=== PATIENT | male | born 1950 ===

== ENCOUNTER 2021-05-28 19:02 | Inpatient (IN) | payer OTHER ==
[~2021-05-28] VITALS: Ht 182.9 cm; Wt 152.6 kg
[2021-05-28 19:29] LABS: BASO % 0.2 % (0.0-2.0); EOS # 0.1 (0.0-0.7); EOS % 0.6 % (0-4.0); GRAN # 9.8 (1.4-6.5); GRAN % 69.7 % (42.2-75.2); HEMATOCRIT 40.5 % (42.0-52.0); HEMOGLOBIN 13.5 g/dl (13.5-18.0); LYMPH # 2.8 (1.2-3.4); LYMPH % 19.7 % (20.0-51.0); MEAN CELL VOLUME 94 fl (80.0-100.0); MEAN CORPUSCULAR HEMOGLOBIN 31 pg (27.0-31.0); MEAN CORPUSCULAR HGB CONC 33 g/dl (33.0-37.0); MEAN PLATELET VOLUME 10.1 fl (7.4-10.4); MONO # 1.3 (0.1-0.6); MONO % 9.4 % (1.7-9.3); PLATELET COUNT 211 K/mm3 (130-400); RED BLOOD COUNT 4.33 M/mm3 (4.20-5.60)
[2021-05-28 19:37] LABS: ALBUMIN 3.8 gm/dL (3.5-5.0); BILIRUBIN,TOTAL 0.6 mg/dL (0.0-1.0); CREATININE, serum 2.1 (0.66-1.25); POTASSIUM 4.3 mmol/L (3.4-5.0); TOTAL PROTEIN 9.1 gm/dL (6.4-8.2)
[2021-05-28 19:47] LABS: INR 1.3 (0.8-3.0); PROTHROMBIN TIME 14.5 SECONDS (9.7-12.8)
[2021-05-28 20:13] LABS: COLLECTION METHOD CLEAN CATCH
[2021-05-28 20:39] LABS: PH 6 (5-8); SQUAMOUS EPITHELIAL 0-2 /hpf; URINE APPEARANCE Cloudy; URINE BACTERIA None Seen /hpf; URINE BILIRUBIN Negative (NEGATIVE); URINE BLOOD 2+ (NEGATIVE); URINE COLOR Red; URINE GLUCOSE Negative (NEGATIVE); URINE KETONE Negative (NEGATIVE); URINE LEUKOCYTE ESTERASE Negative (NEGATIVE); URINE NITRATE Negative (NEGATIVE); URINE PROTEIN(semi-quant) 2+ (NEGATIVE); URINE RBC >50 /hpf; URINE UROBILINOGEN Negative (NEGATIVE)
[2021-05-28] MEDS ORDERED: LOTENSIN HCT 201 TA1 PO (21:21)
[2021-05-28] MEDS ORDERED: MASON NATURAL S1 CAP PO (21:22)
[2021-05-28] MEDS ORDERED: BACTRIM DS 8001 TAB PO (21:22)
--- NOTE | 2021-05-28 22:10 | NUR ---
Admitted to room 317 via stretcher. Transferred to be with 4 assist. Admission assessment complete. VS stable. Daughter at bedside. CBI currently running at a moderate rate with clear yellow urine return with occasional pea size blood clots. Denies pain/nausea/shortness of breath. Plan of care discussed for this shift to include CBI/NPO status/calling for questions/concerns. Verbalizes understanding/denies needs. Call light in reach. Will monitor.
[2021-05-28 22:21] VITALS: BP 111/50; PULSE 96; TEMP 97.6
[2021-05-28] MEDS ORDERED: FLOMAX 0.40.4 MG/CAP PO (22:28)
[2021-05-28 23:54] VITALS: BP 124/66; PULSE 90; TEMP 97.6
[2021-05-29] VITALS (11 sets, daily range): BP systolic 103–140; BP diastolic 53–74; PULSE 76–93; TEMP 97.5–98.6
--- NOTE | 2021-05-29 01:42 | NUR ---
Assisted up to bathroom at this time with two assist. Tolerated well.
--- NOTE | 2021-05-29 03:01 | NUR ---
CBI continues to infuse at a moderate rate. Output mostly light pink with occasional pea size clot. Denies pain/nausea. Remains on O2@3L/NC with O2 sats 92-94%. Call light in reach. Will monitor.
--- NOTE | 2021-05-29 05:55 | NUR ---
CBI continued to flow at a moderate rate-urine clear yellow with occasional small clots noted. Multiple skin issues noted-morbidly obese-skin appears thick/discolored with multiple areas of irritation/old scabbing. Rested off and on this shift. Is very nervous about being in the hospital and having a procedure done. VS remained stable. Denies pain/nausea. O2 remains @3L/NC. Dyspnea with activity. Remained NPO since midnight. Denies current needs. Call light in reach. Will monitor.
[2021-05-29 06:46] LABS: BASO % 0.3 % (0.0-2.0); EOS # 0.2 (0.0-0.7); GRAN # 7.6 (1.4-6.5); GRAN % 63.5 % (42.2-75.2); HEMATOCRIT 40.3 % (42.0-52.0); HEMOGLOBIN 13.3 g/dl (13.5-18.0); LYMPH # 2.8 (1.2-3.4); LYMPH % 23.1 % (20.0-51.0); MEAN CELL VOLUME 96 fl (80.0-100.0); MEAN CORPUSCULAR HEMOGLOBIN 32 pg (27.0-31.0); MEAN CORPUSCULAR HGB CONC 33 g/dl (33.0-37.0); MEAN PLATELET VOLUME 10.3 fl (7.4-10.4); MONO # 1.3 (0.1-0.6); MONO % 10.7 % (1.7-9.3); PLATELET COUNT 210 K/mm3 (130-400); REDCELL DISTRIBUTION WIDTH-CV 14.2 % (11.5-14.5)
[2021-05-29 06:49] LABS: CREATININE, serum 1.97 (0.66-1.25); POTASSIUM 4.2 mmol/L (3.4-5.0)
--- NOTE | 2021-05-29 10:52 | NUR ---
Social Media Director attended clinical rounds with the team. PT/OT ordered. Following rounds, SW met with the patient to complete intake. The patient lives alone in [place]. The patient has a cane and is independent with ADLs. The patient's PCP is Dr. Gutiérrez and patient receives medications from [facility] in . The patient does not have advanced directives and was not interested in DPOA-HC form at this time. The patient is not . He has one daughter, Jelly who lives locally. The patient plans to return home at discharge with no concerns about doing so. *Discharge disposition: Home
--- NOTE | 2021-05-29 10:59 | NUR ---
Salas catheter irrigated with sterile NS. Moderate amount of clots returned. CBI opened to infuse at fast rate, urine clear at this time.
--- NOTE | 2021-05-29 11:00 | NUR ---
Entered pt's room to see Salas bag full of dark red urine and golf ball sized clots. CBI rate increased and notified. Verbal orders to irrigate bladder w/NS. unitizer Gifty assisted in this and was able to remove a large clot. CBI restarted at max rate and updated.
--- NOTE | 2021-05-29 16:49 | NUR ---
Pt off unit for cystoscopy at this time.
--- NOTE | 2021-05-29 22:26 | NUR ---
Pt here from cystoscopy with CBI running moderate rate. No clots noted in line. Iv fluids running. Denies pain or soa. States feels great. Plan of care discussed w pt and daughters. Diet ordered, pm meds given. Needs met .
[2021-05-30 04:37] VITALS: BP 111/54; PULSE 56; TEMP 97.7
--- NOTE | 2021-05-30 05:02 | NUR ---
RESTED THROUGH THE NIGHT WITHOUT INCIDENT. CBI RUNNING MODERATE. URINE CLEAR YELLOW. NO CLOTS . NEEDS MET.
[2021-05-30 07:14] LABS: GRAN # 6.8 (1.4-6.5); GRAN % 87.6 % (42.2-75.2); HEMATOCRIT 38.8 % (42.0-52.0); HEMOGLOBIN 12.6 g/dl (13.5-18.0); LYMPH # 0.7 (1.2-3.4); LYMPH % 9.5 % (20.0-51.0); MEAN CELL VOLUME 98 fl (80.0-100.0); MEAN CORPUSCULAR HEMOGLOBIN 32 pg (27.0-31.0); MEAN CORPUSCULAR HGB CONC 33 g/dl (33.0-37.0); MEAN PLATELET VOLUME 11.6 fl (7.4-10.4); MONO # 0.2 (0.1-0.6); MONO % 2.6 % (1.7-9.3); PLATELET COUNT 197 K/mm3 (130-400); RED BLOOD COUNT 3.96 M/mm3 (4.20-5.60); REDCELL DISTRIBUTION WIDTH-CV 14.6 % (11.5-14.5)
--- NOTE | 2021-05-30 07:40 | NUR ---
ASSESSMENT COMPLETED. PT RESTING IN BED. DENIES ANY PAIN, SOB, OR DIZINESS. URINE APPEARS PEACH/YELLOW IN COLOR. NS RUNNING AT 200 AND CBI RUNNING PER GRAVITY. SKIN ON LEGS APPEARS SCALY AND FLAKY. SKIN ON LOWER ABDOMEN APPEARS SCALY AND LUMPY. CALL LIGHT WITHIN REACH. WILL CONTINUE TO MONITOR.
[2021-05-30 08:13] LABS: CALCIUM 9.2 mg/dL (8.4-10.2); CREATININE, serum 1.46 (0.66-1.25); MAGNESIUM 1.9 mg/dL (1.6-2.3); POTASSIUM 4.6 mmol/L (3.4-5.0)
[2021-05-30 08:20] VITALS: BP 113/62; PULSE 79; TEMP 98.4
--- NOTE | 2021-05-30 12:04 | NUR ---
First visit from the septic technician. No needs right now.
[2021-05-30 12:15] VITALS: BP 115/59; PULSE 77; TEMP 98.6
--- NOTE | 2021-05-30 16:11 | NUR ---
PT/OT recommending home health. [employer] provided Medicare.gov's list of home health agencies that serve the [facility]. The patient is undecided if he would like home health but will review the list then inform this SW.
[2021-05-30 16:14] VITALS: BP 112/43; PULSE 84; TEMP 98.4
[2021-05-30 21:57] VITALS: BP 126/52; PULSE 101; TEMP 97.6
[2021-05-30 22:57] LABS: BASO % 0.2 % (0.0-2.0); GRAN # 10.5 (1.4-6.5); GRAN % 79.5 % (42.2-75.2); HEMATOCRIT 37.9 % (42.0-52.0); HEMOGLOBIN 12.2 g/dl (13.5-18.0); LYMPH # 1.2 (1.2-3.4); LYMPH % 8.7 % (20.0-51.0); MEAN CELL VOLUME 97 fl (80.0-100.0); MEAN CORPUSCULAR HEMOGLOBIN 31 pg (27.0-31.0); MEAN CORPUSCULAR HGB CONC 32 g/dl (33.0-37.0); MEAN PLATELET VOLUME 10.2 fl (7.4-10.4); MONO # 1.5 (0.1-0.6); MONO % 11.1 % (1.7-9.3); PLATELET COUNT 198 K/mm3 (130-400); RED BLOOD COUNT 3.91 M/mm3 (4.20-5.60); REDCELL DISTRIBUTION WIDTH-CV 14.3 % (11.5-14.5)
[2021-05-30 23:19] LABS: ARTERIAL BLD GAS O2 SATURATION 93.3 % (92-100); ARTERIAL BLD GAS TCO2 CT 22.3; ARTERIAL BLOOD GAS BASE EXCESS -2.7 (-2-2); ARTERIAL BLOOD GAS HCO3 21.3 meq/L (22-26); ARTERIAL BLOOD GAS PCO2 34.2 mmHg (35-45); ARTERIAL BLOOD GAS PO2 65.4 mmHg (80-100); ARTERIAL BLOOD GAS pH 7.41 (7.35-7.45)
--- NOTE | 2021-05-31 00:26 | NUR ---
Patient assessed around 2019. Alert and oriented, and able to make needs known. Denies having pain and discomfort. Peripheral IV to right wrist. Denies having SOB and dyspnea. Patient had been on oxygen at 2 L/min via NC when assessed. Patient has since been increased to 4 L/min via NC at this time. LS CTA in upper lobes, diminished in lower. Respirations even and unlabored. HRR. Capillary refill less than 3 seconds. Non-tenting skin turgor. BSAx4. Abdomen soft and non-tender. INdwelling lozada cathether with CBI. Had been running moderate at beginning of shift, now running slow. Output clear and yellow, no clots. Patient's skin to abdomen and BLE scaling/flaking. Dr. Andrade in to see patient around 2039. New orders received for CT. See results. TREY Dacosta in to talk to patient and called daughter and updated on results and plan to transfer to around 2299. Troponin called to [facility] around 2330. Accepted to at this time. [facility] spoke to patient and called daughter and updated. rate supervisor working on transportation at this time.
[2021-05-31 03:00] VITALS: BP 129/54; PULSE 94; TEMP 97.7
--- NOTE | 2021-05-31 03:23 | NUR ---
Called Adan at and given report on patient. EMS here to picking crew supervisor patient and leaving facility at this time. Patient given belongings. NS continues to run at 200 mls/hr to IV site to right wrist. Site without redness, warmth, swelling, and pain. CBI running at a moderate rate at this time with peach, clear urine. On oxygen at 4 L/min via NC. Patient has been NPO since midnight.
== END 2021-05-31 03:25 | disposition short-term general hospital (02) | DRG 695 ==
LOC: COL.ER 19:02 → MEDICAL 20:45 → COL.ER 20:45 → MEDICAL 20:45
PROVIDERS: Internal Medicine; Nurse Practitioner Family; Personal Emergency Response Attendant; Student in an Organized Health Care Education/Training Program; Urology; ADMIT Family Medicine
PROC: 0TCD8ZZ Extirpation of Matter from Urethra, Via Natural or Artificial Opening Endoscopic (ICD-10-PCS; principal; 2021-05-29 13:00)
DX: R31.0 Gross hematuria (principal); J96.01 Acute respiratory failure with hypoxia; I26.99 Other pulmonary embolism without acute cor pulmonale; Z68.42 Body mass index [BMI] 45.0-49.9, adult; I50.30 Unspecified diastolic (congestive) heart failure; E66.01 Morbid (severe) obesity due to excess calories; E11.9 Type 2 diabetes mellitus without complications; N32.89 Other specified disorders of bladder; N17.9 Acute kidney failure, unspecified; N39.0 Urinary tract infection, site not specified; Z90.81 Acquired absence of spleen; Z90.49 Acquired absence of other specified parts of digestive tract; R33.9 Retention of urine, unspecified; I11.0 Hypertensive heart disease with heart failure; R53.81 Other malaise; N28.89 Other specified disorders of kidney and ureter
CPT/HCPCS: OP; 99223-AI; 99232-AI; 99233-AI; 99239; A9284; J0690; J0696; J1100; J2270; J2405; J2704; J3010; J7030; Q9967

== ENCOUNTER 2021-07-06 19:34 | Inpatient (IN) | payer MEDICARE ==
[~2021-07-06] VITALS: Ht 182.9 cm; Wt 176.6 kg
[~2021-07-06 19:34] MED LIST: BACTRIM DS 8001 TAB PO; FLOMAX 0.40.4 MG/CAP PO; LOTENSIN HCT 201 TA1 PO; MASON NATURAL S1 CAP PO
[2021-07-06 20:54] LABS: HEMATOCRIT 37.7 % (42.0-52.0); HEMOGLOBIN 12.1 g/dl (13.5-18.0); MEAN CELL VOLUME 97 fl (80.0-100.0); MEAN CORPUSCULAR HEMOGLOBIN 31 pg (27.0-31.0); MEAN CORPUSCULAR HGB CONC 32 g/dl (33.0-37.0); MEAN PLATELET VOLUME 10.1 fl (7.4-10.4); PLATELET COUNT 356 K/mm3 (130-400); RED BLOOD COUNT 3.89 M/mm3 (4.20-5.60)
[2021-07-06 20:58] LABS: ALBUMIN 3.3 gm/dL (3.5-5.0); BILIRUBIN,TOTAL 0.5 mg/dL (0.0-1.0); CALCIUM 9.4 mg/dL (8.4-10.2); CREATININE, serum 1.05 (0.66-1.25); POTASSIUM 4.2 mmol/L (3.4-5.0); TOTAL PROTEIN 8.3 gm/dL (6.4-8.2)
[2021-07-06 21:09] LABS: INR 1.7 (0.8-3.0); PROTHROMBIN TIME 18.9 SECONDS (9.7-12.8); TROPONIN-I 0.022 ng/mL (0.000-0.035)
[2021-07-06 21:12] LABS: PARTIAL THROMBOPLASTIN TIME 34.4 SECONDS (26.0-37.0)
[2021-07-06 21:13] LABS: COLLECTION METHOD CATHETER
[2021-07-06 21:14] LABS: ARTERIAL BLD GAS O2 SATURATION 95.7 % (92-100); ARTERIAL BLD GAS TCO2 CT 26.6; ARTERIAL BLOOD GAS BASE EXCESS 1.6 (-2-2); ARTERIAL BLOOD GAS HCO3 25.4 meq/L (22-26); ARTERIAL BLOOD GAS PCO2 37.1 mmHg (35-45); ARTERIAL BLOOD GAS pH 7.45 (7.35-7.45)
[2021-07-06] MEDS ORDERED: ELIQUIS 5MG PO (21:26)
[2021-07-06 21:29] LABS: C-REACTIVE PROTEIN 19.9 mg/dL (0.0-0.9)
[2021-07-06 21:34] LABS: MUCOUS Present /lpf; PH 7 (5-8); SQUAMOUS EPITHELIAL None Seen /hpf; URINE APPEARANCE Clear; URINE BACTERIA None Seen /hpf; URINE BILIRUBIN Negative (NEGATIVE); URINE BLOOD Negative (NEGATIVE); URINE COLOR Yellow; URINE GLUCOSE Negative (NEGATIVE); URINE KETONE Negative (NEGATIVE); URINE LEUKOCYTE ESTERASE Negative (NEGATIVE); URINE NITRATE Negative (NEGATIVE); URINE PROTEIN(semi-quant) 1+ (NEGATIVE); URINE WBC 0-2 /hpf
[2021-07-06 21:41] LABS: LYMPHOCYTE 20 % (20.0-51.0); NEUTROPHILS 73 % (42.0-75.2); NUCLEATED RED BLOOD CELL 1 (0-6)
[2021-07-06 21:43] LABS: ANISOCYTOSIS 1+; HYPOCHROMIA 1+; PLATELET ESTIMATE NORMAL (NORMAL)
[2021-07-06 22:31] LABS: ERYTHROCYTE SEDIMENTATION RATE 95 mm/hr (0-30)
[2021-07-06] MEDS ORDERED: FLOMAX 0.40.4 MG/CAP PO (23:33)
[2021-07-07] VITALS (9 sets, daily range): BP systolic 97–141; BP diastolic 40–75; PULSE 59–84; TEMP 97.4–98.6
[2021-07-07 02:46] LABS: IRON,SERUM < 10 ug/dL (35-150)
[2021-07-07 02:56] LABS: TOTAL IRON BINDING CAPACITY 196 ug/dL (261-462)
--- NOTE | 2021-07-07 03:11 | NUR ---
Vancomycin Initial Dosing Pharmacy Note Ordering provider: Maggie Mon MD Indication/duration: Extensive cellulitis x 10 days. Relevant comorbidities: DM, HTN, renal mass concerning for maligancy LABS: WBC = 31.9, SCr = 1.05 Recommendation: Will draw troughs and follow levels. Loading dose: 2 grams Maintenance dose: 1.25 grams every 12 hours Trough goal: 10-15 ug/mL
--- NOTE | 2021-07-07 05:01 | NUR ---
Pt came for cellulitis of the legs bilaterally. Pt has a open ulcer in the lower ABD which i placed a mepelex on.Pt is currently afibrile. Pain rated 0/10. IV antibiotics started. Will continue to monitor.
[2021-07-07 09:12] LABS: MEAN CELL VOLUME 99 fl (80.0-100.0); MEAN CORPUSCULAR HEMOGLOBIN 31 pg (27.0-31.0); MEAN CORPUSCULAR HGB CONC 31 g/dl (33.0-37.0); MEAN PLATELET VOLUME 9.4 fl (7.4-10.4); PLATELET COUNT 339 K/mm3 (130-400); RED BLOOD COUNT 3.57 M/mm3 (4.20-5.60); REDCELL DISTRIBUTION WIDTH-CV 15.4 % (11.5-14.5)
[2021-07-07 09:19] LABS: HEMATOCRIT 35.2 % (42.0-52.0)
[2021-07-07 09:24] LABS: ALBUMIN 2.8 gm/dL (3.5-5.0); BILIRUBIN,TOTAL 0.3 mg/dL (0.0-1.0); CALCIUM 8.7 mg/dL (8.4-10.2); CREATININE, serum 0.96 (0.66-1.25); POTASSIUM 4.2 mmol/L (3.4-5.0); TOTAL PROTEIN 7.2 gm/dL (6.4-8.2)
--- NOTE | 2021-07-07 13:11 | NUR ---
Plan is to return home in . Patient reports living independently. Patient reports that he has a DTR Jelly and a Adl-GrandDtr . Patient reports that she is in pain in his legs 07/09. Patient reports that he uses Cane for mobility and no other DME suppors. Patient report that his PCP is Dr. Andrade. RX obtained at [facility]. Patient reports that he is open to Home health services. LYNDA printed packet on Home health for references. Nothing Follows.
--- NOTE | 2021-07-07 19:52 | NUR ---
Patient resting in bed. Critical high WBC was called to this am. & were called consults. Patient was provided total hygiene this am. BLE elevated on pillows per Dr. Judd. Chux changed as needed when soiled from leg drainage. Salas care provided. Adequate urine output. benji output. Iv x2 with antibioitcs per orders and fluids. Patient has tolerated meals, denies nausea. Daughter at bedside. [facility]
--- NOTE | 2021-07-07 20:00 | NUR ---
PATIENT IS CALM IN THE ROOM.REPORTED OF A CHEST CONGESTION.RT GAVE HIM HIS BREATHING TREATMENT.PATIENT DENIES PAIN.PATIENT HAD HEMATURIA NIGHT PROVIDER NOTIFIED PLAN HOLD ELIQUIS.NO OTHER NEEDS AT THIS TIME.
[2021-07-08 03:21] VITALS: BP 112/44; PULSE 68; TEMP 97.7
--- NOTE | 2021-07-08 05:47 | NUR ---
PATIENT HAD A CALM NIGHT.DENIES PAIN.IVFS ON GOOD PROGRESS.ON O2 VIA NC.SAFETY MEASURES IN PLACE.NO OTHER NEEDS AT THIS TIME.
[2021-07-08 07:03] LABS: HEMOGLOBIN 10.6 g/dl (13.5-18.0); MEAN CELL VOLUME 98 fl (80.0-100.0); MEAN CORPUSCULAR HEMOGLOBIN 32 pg (27.0-31.0); MEAN CORPUSCULAR HGB CONC 32 g/dl (33.0-37.0); MEAN PLATELET VOLUME 9.9 fl (7.4-10.4); PLATELET COUNT 355 K/mm3 (130-400); RED BLOOD COUNT 3.37 M/mm3 (4.20-5.60); REDCELL DISTRIBUTION WIDTH-CV 15.7 % (11.5-14.5)
[2021-07-08 07:23] LABS: CALCIUM 8.6 mg/dL (8.4-10.2); CREATININE, serum 1.04 (0.66-1.25); POTASSIUM 4.3 mmol/L (3.4-5.0)
--- NOTE | 2021-07-08 07:31 | NUR ---
Critical wbc reported to lisa flood
[2021-07-08 07:32] VITALS: BP 111/46; PULSE 60; TEMP 99
[2021-07-08 08:03] LABS: BAND 21 % (0-10); LYMPHOCYTE 7 % (20.0-51.0); METAMYELOCYTE 2 % (0-0); NEUTROPHILS 68 % (42.0-75.2); PLATELET ESTIMATE NORMAL (NORMAL)
--- NOTE | 2021-07-08 10:45 | NUR ---
Patient resting in bed. Hospitalist team rounded. Plan of care reviewed. Eliquis given per orders, no signs of hematuria this am. Tylenol for leg pain. Legs elevated with pillows. Patient was up the am, used the restroom & stood at sink and brushed his teeth. New linens provided. Tolerated breakfast. Iv to RFA DC leaking. Antibiotcs to Lac per orders
[2021-07-08 11:34] VITALS: BP 111/45; PULSE 77; TEMP 97.4
--- NOTE | 2021-07-08 13:34 | NUR ---
Met with patient to follow up on discharge plan. SW attended multidiciplinary rounds and met with patient after to discuss. Educated the patient about the difference between home health and a SNF. Worker collaborated with provider and I.v. antibiotics post hospitalization not anticipated. Continue plan home with HH. *Discharge plan: home with HH*
--- NOTE | 2021-07-08 13:37 | NUR ---
Initial visit; Patient thanked [employer] for looking in on him and offering God's blessings and to keep him in her prayers.
--- NOTE | 2021-07-08 14:45 | NUR ---
Patient complains of cough, hospitalist team made aware orders obtained. Patient having lozada discomfort, UA ordered. no hematuria noted. Patient legs cleansed thoroughly, multiple washcloths used. drainage present. new chux beneath legs. pannus cleansed thoroughly, powder and inderdry cloth used. lozada cares given. Patient refused therapy this afternoon. His daughter at bedside. Will report off to nightnurse
--- NOTE | 2021-07-08 15:14 | NUR ---
dry yard worker met with patient and daughter (Jelly). Spoke with patient about therapy's recommendation is to go home with PT. Provided patient and patient's daugher the Medicare.Gov list of local home health agencies in their area. Patient and patient's daughter listed out their prefered agencies. dry yard worker called agencies and faxed referrals. Patient and patients daughter expressed interest in establishing a DPOA-HC. dry yard worker provided form and educated patient on what it means. Patient filled form out and this high school social studies tutor, and high school social studies tutor Dulce witnessed patient sign it. Waiting response from agencies. *Discharge plan: Home with home health*
[2021-07-08 16:14] VITALS: BP 108/46; PULSE 62; TEMP 97.6
[2021-07-08 16:20] LABS: COLLECTION METHOD CATHETER
[2021-07-08 16:32] LABS: PH 5 (5-8); SQUAMOUS EPITHELIAL 0-2 /hpf; URINE APPEARANCE Cloudy; URINE BACTERIA None Seen /hpf; URINE BILIRUBIN Negative (NEGATIVE); URINE BLOOD 3+ (NEGATIVE); URINE COLOR Yellow; URINE GLUCOSE Negative (NEGATIVE); URINE KETONE Negative (NEGATIVE); URINE LEUKOCYTE ESTERASE 1+ (NEGATIVE); URINE NITRATE Negative (NEGATIVE); URINE PROTEIN(semi-quant) 2+ (NEGATIVE); URINE RBC >50 /hpf; URINE UROBILINOGEN Negative (NEGATIVE)
--- NOTE | 2021-07-08 19:25 | NUR ---
Patient sat up at edge of bed for dinner. Assisted back into bed. Daughter at bedside. REport to [place]
--- NOTE | 2021-07-08 19:36 | NUR ---
PATIENT SITTING IN BED AT TIME OF ASSESSMENT. ALERT AND ORIENTED X4. ON RA NO RESPIRATORY DISTRESS NOTED. LUNG SOUNDS DIMINISHED. ABD LARGE WITN DRY OOZING AREA. MILLS CATHER TO GRAVITY WITH DARK YELLOW URINE. LACI LE WITH CELLULITIS, DRY AND SCALLY. RIGHT FOOT OOZING. DENIES ANY DISCOMFORT AT THIS TIME.. IV ABX INFUSING. ASSISTED BACK INTO BED WITH ONE ASSISTED. PATIENT ASSISTS WITH PULLING HIMSELF UP IN BED. CALL LIGHT WITHIN REACH. WILL CONTINUE TO MONITOR.
[2021-07-08 19:39] VITALS: BP 109/51; PULSE 64; TEMP 97.8
[2021-07-09 00:47] VITALS: BP 116/58; PULSE 69; TEMP 97.7
[2021-07-09 04:45] VITALS: BP 108/54; PULSE 68; TEMP 97.7
[2021-07-09 06:08] LABS: HEMOGLOBIN 10.2 g/dl (13.5-18.0); MEAN CELL VOLUME 96 fl (80.0-100.0); MEAN CORPUSCULAR HEMOGLOBIN 31 pg (27.0-31.0); MEAN CORPUSCULAR HGB CONC 32 g/dl (33.0-37.0); MEAN PLATELET VOLUME 9.6 fl (7.4-10.4); PLATELET COUNT 341 K/mm3 (130-400); REDCELL DISTRIBUTION WIDTH-CV 15.8 % (11.5-14.5)
[2021-07-09 06:20] LABS: CREATININE, serum 0.9 (0.66-1.25); POTASSIUM 3.9 mmol/L (3.4-5.0)
[2021-07-09 06:23] LABS: HEMATOCRIT 31.6 % (42.0-52.0)
[2021-07-09 06:56] LABS: BAND 1 % (0-10); LYMPHOCYTE 28 % (20.0-51.0); NEUTROPHILS 70 % (42.0-75.2); PLATELET ESTIMATE NORMAL (NORMAL)
[2021-07-09 07:54] VITALS: BP 132/60; PULSE 65; TEMP 97.5
--- NOTE | 2021-07-09 11:57 | NUR ---
Patient alert and oriented, answers questions appropriately. See assessment. BLE with 3+ edema noted, pulses palpable. Cellulitis noted to BLE with discoloration noted below knees. Cellulitis noted to RLQ, pedrito, 4x4 in place to absorb moisture. FWB with assist x1 and gait belt. No c/o at this time.
[2021-07-09 12:11] VITALS: BP 123/56; PULSE 73; TEMP 97.4
--- NOTE | 2021-07-09 15:21 | NUR ---
flying squad worker met with patient and placed copy of durable power of civil attorney on the medical record. Worker spoke with patient about current plan to return home upon discharge. Patient states he has ambulated in his room and has a lift chair at home. Patient states he continues his plan to return home with home health. Patient states his children help him with groceries and meals and his granddaughter lives 2 blocks from him.
[2021-07-09 15:57] VITALS: BP 127/59; PULSE 74; TEMP 98
[2021-07-09 19:48] VITALS: BP 145/68; PULSE 82; TEMP 97.5
[2021-07-10] VITALS (7 sets, daily range): BP systolic 130–158; BP diastolic 59–73; PULSE 67–91; TEMP 97.5–98
--- NOTE | 2021-07-10 03:18 | NUR ---
PATIENT RESTING IN BED. ALERT AND ORIENTED X4. DENIES PAIN OR SOB. ON 2 L NC SAT 92%. INCONTINENT OF LARGE AMOUNT OF URINE. TURNED AND REPOSITION WITH ON ASSIST. VSS. WILL CONTINUE TO MONITOR.
--- NOTE | 2021-07-10 04:15 | NUR ---
PATIENT RESTING IN BED ALERT AND ORIENTED. VSS, AFEBRILE. LACI LE CELLULITIS TREATED WITH IV ABX. MILLS TO GRAVITY WITH DARK YELLOW URINE. DENIES ANY DISCOMFORT AT THIS TIME. WILL CONTINUE TO MONITOR.
--- NOTE | 2021-07-10 06:22 | NUR ---
Patient out of to recliner. LEFT LOWER PART OF ABDOMEN BLEEDING 4X4 APPLIED. TYLENOL 650 MG GIVEN FOR LEGS PAIN. WILL CONTINUE TO MONITOR.
[2021-07-10 06:56] LABS: HEMOGLOBIN 10.9 g/dl (13.5-18.0); MEAN CELL VOLUME 99 fl (80.0-100.0); MEAN CORPUSCULAR HEMOGLOBIN 30 pg (27.0-31.0); MEAN CORPUSCULAR HGB CONC 31 g/dl (33.0-37.0); MEAN PLATELET VOLUME 9.6 fl (7.4-10.4); PLATELET COUNT 404 K/mm3 (130-400); RED BLOOD COUNT 3.59 M/mm3 (4.20-5.60); REDCELL DISTRIBUTION WIDTH-CV 15.9 % (11.5-14.5)
[2021-07-10 07:04] LABS: HEMATOCRIT 35.4 % (42.0-52.0)
[2021-07-10 07:07] LABS: CALCIUM 9.1 mg/dL (8.4-10.2); CREATININE, serum 0.92 (0.66-1.25); POTASSIUM 4.4 mmol/L (3.4-5.0)
[2021-07-10 08:09] LABS: ANISOCYTOSIS 1+; BAND 2 % (0-10); EOSINOPHIL 1 % (0-4); LYMPHOCYTE 12 % (20.0-51.0); METAMYELOCYTE 2 % (0-0); NEUTROPHILS 79 % (42.0-75.2); PLATELET ESTIMATE NORMAL (NORMAL)
--- NOTE | 2021-07-10 09:52 | NUR ---
Patient alert and oriented, answers questions appropriately. See assessment. BLE with 3+ edema noted, no drainage noted. Pulses palpable to BLE. Pannus with 1+ edema and redness noted, weeping scant amounts of serosanguionous drainage. No c/o at this time.
--- NOTE | 2021-07-10 10:57 | NUR ---
broom worker met with patient to discuss [facility] has accepted him. broom worker will contact his daughter (DPOA-HC) of the update as well. broom worker faxed update to [facility].
[2021-07-10 18:53] LABS: COLLECTION METHOD CATHETER
[2021-07-10 19:03] LABS: MUCOUS Present /lpf; PH 5 (5-8); SQUAMOUS EPITHELIAL 0-2 /hpf; URINE APPEARANCE Hazy; URINE BACTERIA Rare /hpf; URINE BILIRUBIN Negative (NEGATIVE); URINE BLOOD 3+ (NEGATIVE); URINE COLOR Yellow; URINE GLUCOSE Negative (NEGATIVE); URINE KETONE Trace (NEGATIVE); URINE LEUKOCYTE ESTERASE 1+ (NEGATIVE); URINE NITRATE Negative (NEGATIVE); URINE PROTEIN(semi-quant) 1+ (NEGATIVE); URINE RBC >50 /hpf; URINE UROBILINOGEN Negative (NEGATIVE)
--- NOTE | 2021-07-10 21:26 | NUR ---
PATIENT RESTING IN BED INNO APPARENT DISTRESS. ON 2L NC 02. VSS. LACI LE SWELLING WITH DRY, SCALLY AND RIPPING SITE. LEGS ELEVATED IN BED. VSS. CALL LIGHT WITHIN REACH.
[2021-07-11 03:05] VITALS: BP 141/62; PULSE 70; TEMP 97.9
[2021-07-11 07:28] LABS: CALCIUM 9.2 mg/dL (8.4-10.2); CREATININE, serum 0.79 (0.66-1.25); POTASSIUM 4.1 mmol/L (3.4-5.0)
[2021-07-11 07:37] LABS: HEMOGLOBIN 10.5 g/dl (13.5-18.0); MEAN CELL VOLUME 97 fl (80.0-100.0); MEAN CORPUSCULAR HEMOGLOBIN 31 pg (27.0-31.0); MEAN CORPUSCULAR HGB CONC 32 g/dl (33.0-37.0); MEAN PLATELET VOLUME 9.9 fl (7.4-10.4); PLATELET COUNT 333 K/mm3 (130-400); RED BLOOD COUNT 3.37 M/mm3 (4.20-5.60); REDCELL DISTRIBUTION WIDTH-CV 15.9 % (11.5-14.5)
[2021-07-11 07:40] LABS: HEMATOCRIT 32.8 % (42.0-52.0)
[2021-07-11 08:01] VITALS: BP 136/66; PULSE 73; TEMP 98.2
[2021-07-11 08:49] LABS: BAND 1 % (0-10); EOSINOPHIL 1 % (0-4); LYMPHOCYTE 19 % (20.0-51.0); NEUTROPHILS 77 % (42.0-75.2)
[2021-07-11 08:50] LABS: PLATELET ESTIMATE NORMAL (NORMAL)
[2021-07-11 08:51] LABS: HYPOCHROMIA 2+
[2021-07-11 11:27] VITALS: BP 129/54; PULSE 70; TEMP 98
[2021-07-11 16:00] VITALS: BP 134/56; PULSE 74; TEMP 98.3
--- NOTE | 2021-07-11 18:00 | NUR ---
PT RECEIVED RESTING IN BED. NO S/S OF DISTRESS NOTICED. PT AWAKE AND ALERT. BLOOD GLUCOSE MONITORED ORDERED. PT ATE HIS MEALS EXCEPT FOR LUNCH, PT OFFERED A SNACK BUT DECLINED. A.M. CARE PROVIDED. PT HAS A MALE EXTERNAL CATHETER IN PLACE. PT/OT SAW PT. MEDICATIONS ADMINISTERED ORDERED. PT DENIES HAVING PAIN. PT ENCOURAGED TO ELEVATED HIS LOWER EXTREMITIES. ISOLATION PRECAUTION MAINTAINED. COMFORT MEASURES IN PLACE. CALL-LIGHT IN REACH. BED IN LOW POSITION. WILL CONTINUE TO MONITOR.
[2021-07-11 20:01] VITALS: BP 125/55; PULSE 75; TEMP 98.8
[2021-07-11 23:25] VITALS: BP 125/59; PULSE 78; TEMP 98.5
--- NOTE | 2021-07-12 03:22 | NUR ---
Assessment is completed, alert and oriented VS are stable. Patient is comfortably lying in big boy bed without any complains. Denies pain or SOB. Blood sugar is WNL and he didn't get cover for that. Patient is expecting that he might get DC today. Around midnight when he ask for tylenol for he rated his pain 5/10 in lower legs. After that he fell asleep. He has external lozada in placed. No further complains. Continue to follow.
[2021-07-12 03:24] VITALS: BP 131/54; PULSE 78; TEMP 98.1
[2021-07-12 06:29] LABS: HEMOGLOBIN 11.2 g/dl (13.5-18.0); MEAN CELL VOLUME 97 fl (80.0-100.0); MEAN CORPUSCULAR HEMOGLOBIN 31 pg (27.0-31.0); MEAN CORPUSCULAR HGB CONC 32 g/dl (33.0-37.0); MEAN PLATELET VOLUME 9.6 fl (7.4-10.4); PLATELET COUNT 382 K/mm3 (130-400); RED BLOOD COUNT 3.66 M/mm3 (4.20-5.60); REDCELL DISTRIBUTION WIDTH-CV 15.8 % (11.5-14.5)
[2021-07-12 06:43] LABS: CALCIUM 9.3 mg/dL (8.4-10.2); CREATININE, serum 0.82 (0.66-1.25); POTASSIUM 3.8 mmol/L (3.4-5.0)
--- NOTE | 2021-07-12 06:55 | NUR ---
awake and sitting up in chair, bedside shift report received from ANGELA Mosqueda
[2021-07-12 07:17] LABS: HEMATOCRIT 35.4 % (42.0-52.0)
[2021-07-12 07:50] VITALS: BP 124/52; PULSE 64; TEMP 97.7
--- NOTE | 2021-07-12 07:55 | NUR ---
On 07/11/2021 medical social worker presented and explained and obtained signature for the IM form.
[2021-07-12 08:47] LABS: BAND 7 % (0-10); LYMPHOCYTE 18 % (20.0-51.0); METAMYELOCYTE 3 % (0-0); NEUTROPHILS 68 % (42.0-75.2); PLATELET ESTIMATE NORMAL (NORMAL)
[2021-07-12] MEDS ORDERED: BACTRIM DS 8001 TAB PO (09:02)
[2021-07-12] MEDS ORDERED: CEPHALEXIN500 M1 PO (09:02)
--- NOTE | 2021-07-12 09:30 | NUR ---
remains up in chair, daughter at bedside, full assessment completed, see interventions for further info, legs are very very large and dry and crusty, as is his scrotum and abdomen, external catheter removed, is sitting up now and ready to eat breakfst
--- NOTE | 2021-07-12 10:38 | NUR ---
electrical lineworker met with patient and Daughter to address questions they had about home health. electrical lineworker informed patient and daughter that i would be calling [facility] to give them an update. electrical lineworker informed both patient and daughter that a nurse would be coming out tomorrow to complete intake assessment. electrical lineworker called Ruby at [facility] to give update and faxed discharge instructions.
--- NOTE | 2021-07-12 11:00 | NUR ---
BEVEL POLISHER assisted he and his daughter with am hygiene, now he is back in bed resting
--- NOTE | 2021-07-12 13:30 | NUR ---
daughter here, patient was up to bathroom and voided large amount, assisted with placing depends, discharge instructions given to patient and his daughter and verbalizes understanding
--- NOTE | 2021-07-12 13:45 | NUR ---
discharged per WC
== END 2021-07-12 13:45 | disposition home health service (06) | DRG 871 ==
LOC: COL.ER 19:34 → SURG 23:35
PROVIDERS: Emergency Medicine; Internal Medicine; Physician Assistant; ADMIT Student in an Organized Health Care Education/Training Program
DX: A41.02 Sepsis due to Methicillin resistant Staphylococcus aureus (principal); I26.99 Other pulmonary embolism without acute cor pulmonale; L03.116 Cellulitis of left lower limb; L03.115 Cellulitis of right lower limb; L03.311 Cellulitis of abdominal wall; I50.32 Chronic diastolic (congestive) heart failure; E66.2 Morbid (severe) obesity with alveolar hypoventilation; B95.0 Streptococcus, group A, as the cause of diseases classified elsewhere; Z68.43 Body mass index [BMI] 50.0-59.9, adult; M79.3 Panniculitis, unspecified; R30.0 Dysuria; Z86.711 Personal history of pulmonary embolism; Z86.718 Personal history of other venous thrombosis and embolism; N28.89 Other specified disorders of kidney and ureter; I87.2 Venous insufficiency (chronic) (peripheral); I89.0 Lymphedema, not elsewhere classified; I48.91 Unspecified atrial fibrillation; I11.0 Hypertensive heart disease with heart failure; R94.5 Abnormal results of liver function studies; D64.9 Anemia, unspecified; I27.20 Pulmonary hypertension, unspecified; E11.9 Type 2 diabetes mellitus without complications; Z60.2 Problems related to living alone; Z20.822 Contact with and (suspected) exposure to COVID-19; Z79.01 Long term (current) use of anticoagulants; R09.02 Hypoxemia; Z90.49 Acquired absence of other specified parts of digestive tract; Z90.81 Acquired absence of spleen
CPT/HCPCS: 99223-AI; 99232-AI; 99233-AI; 99239; A9284; J1100; J1815; J2543; J3370; J7030; J7050; Q9967

== ENCOUNTER 2021-10-02 14:30 | Outpatient (RCR) | payer MEDICARE ==
[~2021-10-02 14:30] MED LIST changes: +CEPHALEXIN500 M1 PO; +ELIQUIS 5MG PO
== END 2021-11-14 | disposition home or self-care (01) ==
LOC: MKS.ESL.PT
DX: I89.0 Lymphedema, not elsewhere classified (principal)